=== PATIENT | male | born 1995 | race Asian ===

== ENCOUNTER 2025-05-25 01:19 | Emergency (ER) | payer OTHER ==
[~2025-05-25] VITALS: Ht 170.2 cm; Wt 85.0 kg
[2025-05-25 02:08] VITALS: TEMP 37.2; O2SAT 100
[2025-05-25 03:24] VITALS: BP 116/83; PULSE 92; RESP 16; O2SAT 100
[2025-05-25] MEDS: KETOROLAC 15MG/ML VIAL IM ONE (03:24)
[2025-05-25] MEDS ORDERED: CEPH500T MT ×2 (03:39→16:43)
[2025-05-25] MEDS ORDERED: NAPR-1176 MT ×2 (03:39→16:43)
[2025-05-25] MEDS ORDERED: SULF1TAB48 MT ×2 (03:39→16:43)
== END 2025-05-25 03:54 | disposition home or self-care (01) ==
LOC: ER 01:36
DX: K61.1 Rectal abscess (principal); K62.89 Other specified diseases of anus and rectum; Z79.1 Long term (current) use of non-steroidal anti-inflammatories (NSAID)
CPT/HCPCS: 99283; 96372; J1885

== ENCOUNTER 2025-05-25 14:52 | Emergency (ER) | payer OTHER ==
[~2025-05-25] VITALS: Ht 170.2 cm; Wt 84.8 kg
[~2025-05-25 14:52] MED LIST: CEPH500T MT; NAPR-1176 MT; SULF1TAB48 MT
[2025-05-25 15:13] VITALS: O2SAT 99
[2025-05-25] MEDS ORDERED: SULF1TAB48 MT (16:43)
[2025-05-25] MEDS ORDERED: CEPH500T MT (16:43)
[2025-05-25] MEDS ORDERED: NAPR-1176 MT (16:43)
[2025-05-25 17:19] VITALS: BP 123/74; PULSE 84; RESP 16; TEMP 36.9; O2SAT 98
== END 2025-05-25 17:20 | disposition home or self-care (01) ==
LOC: ER 14:52
DX: K61.2 Anorectal abscess (principal); Z79.1 Long term (current) use of non-steroidal anti-inflammatories (NSAID); Z79.899 Other long term (current) drug therapy
CPT/HCPCS: 99283